=== PATIENT | female | born 1985 | race Caucasian/White ===

== ENCOUNTER 2023-03-09 11:08 | Emergency (ER) | payer OTHER ==
[~2023-03-09] VITALS: Ht 167.6 cm; Wt 63.5 kg
[2023-03-09 11:11] VITALS: BP 107/68; PULSE 101; RESP 16; TEMP 96.1; O2SAT 98
[2023-03-09] MEDS ORDERED: predniSONE 20 MG TAB PO ONE (11:30)
[2023-03-09] MEDS ORDERED: ALBUTEROL SULFATE/IPRATROPIU 3 ML SOL IH ONE (11:30)
[2023-03-09] MEDS ORDERED: ALBUTEROL 0.083% 2.5 MG/3 ML NEBU INH ONE (11:30)
[2023-03-09 12:02] VITALS: TEMP 96.1
[2023-03-09] MEDS ORDERED: ATA25 PO (12:43)
[2023-03-09 12:50] VITALS: BP 109/65; PULSE 70; RESP 14; O2SAT 99
== END 2023-03-09 12:51 | disposition home or self-care (01) ==
LOC: MED 11:08
DX: R06.02 Shortness of breath (principal); F41.9 Anxiety disorder, unspecified; J45.909 Unspecified asthma, uncomplicated
CPT/HCPCS: 99283; J7512